=== PATIENT | female | born 1970 | race Caucasian/White ===

== ENCOUNTER 2016-09-08 12:56 | Emergency (ER) | payer BC ==
[~2016-09-08] VITALS: Ht 172.7 cm; Wt 129.5 kg
[2016-09-08 12:59] VITALS: TEMP 99.1
[2016-09-08] MEDS ORDERED: WELLBUTRIN XL300 M1 PO (13:05)
[2016-09-08] MEDS ORDERED: KLOR-CON 1010 MEQ PO (13:06)
[2016-09-08] MEDS ORDERED: LASIX 20MG TABL20 MG PO (13:06)
[2016-09-08] MEDS ORDERED: LAMICTAL200 MG PO (13:07)
[2016-09-08] MEDS ORDERED: LATUDA20 MG PO (13:07)
[2016-09-08] MEDS ORDERED: SINGULAIR 110 MG/TAB PO (13:07)
[2016-09-08] MEDS ORDERED: PULMICORT90 MCG/Act IH (13:08)
[2016-09-08] MEDS ORDERED: MULTI VITAMINS1 TAB PO (13:08)
[2016-09-08] MEDS ORDERED: ZYRTEC 10MG10 MG PO (13:08)
[2016-09-08] MEDS ORDERED: VITAMIN C500 MG PO (13:09)
[2016-09-08] MEDS ORDERED: VITAMIN D31000 I1 PO (13:09)
[2016-09-08] MEDS ORDERED: FLEXERIL5 MG PO ×2 (14:36→16:06)
[2016-09-08 14:53] VITALS: BP 133/85; PULSE 77
== END 2016-09-08 14:55 | disposition home or self-care (01) ==
LOC: COL.ER 12:56
DX: M79.1 Myalgia (principal); M62.838 Other muscle spasm
CPT/HCPCS: J1885; J2360